=== PATIENT | female | born 1980 | race Caucasian/White ===

== ENCOUNTER 2018-03-18 23:44 | Emergency (ER) | payer BC ==
[2018-03-18 23:54] VITALS: BP 136/90; PULSE 82; TEMP 97.8; BMI 36.6
[2018-03-19] MEDS ORDERED: ONDANSETRON 4 MG/2 ML VIAL ONE
[2018-03-19] MEDS ORDERED: KETOROLAC TROMETHAMINE 30 MG/1 ML VIAL ONE (00:01)
[2018-03-19] MEDS ORDERED: SODIUM CHLORIDE 1,000 ML IV STA ×2 (00:02→01:11)
[2018-03-19] MEDS ORDERED: KETOROLAC TROMETHAMINE 30 MG/1 ML VIAL IVPUSH ONE (00:02)
[2018-03-19] MEDS ORDERED: ONDANSETRON 4 MG/2 ML VIAL IVPUSH ONE (00:02)
--- NOTE | 2018-03-19 00:02 | PDOC ---
History of Present Illness - General Chief Complaint: Pain, Acute Stated Complaint: KIDNEY STONE Time Seen by Provider: 03/18/18 23:47 - History of Present Illness Initial Comments: 03/19/18 00:13 This 37-year-old woman with a 15 year history of bilateral kidney stones (most recently 8 years ago) presents with 1 day history of left CVA pain accompanied by nausea with 1 episode of vomiting. Patient states that to previous kidney stones ( 1 on right/1 on left) required shockwave lithotripsy. She has not had any hematuria/dysuria/urgency. No fever or chills. She states that this pain is very similar to previous episodes of kidney stones. Patient has currently menstruating and states that she is not . Past History - Past Medical History Allergies/Adverse Reactions: Allergies Allergy/AdvReac Type Severity Reaction Status Date / Time No Known Allergies Allergy Verified 03/18/18 23:45 Home Medications: Ambulatory Orders Ondansetron [Zofran Odt -] 4 mg SL TID PRN #12 od.tablet 03/19/18 Oxycodone HCl/Acetaminophen [Percocet 5-325 mg Tablet] 1 tab PO Q6H PRN #16 tablet MDD 4 tabs 03/19/18 COPD: No Kidney Stones: Yes - Suicide/Smoking/Psychosocial Hx Smoking History: Current some day smoker Have you smoked in the past 12 months: Yes Information on smoking cessation initiated: Yes Hx Alcohol Use: Yes (OCCAS) Drug/Substance Use Hx: No Review of Systems - Review of Systems Able to Perform ROS?: Yes Comments:: 12 point review of systems is negative except for what is noted in the history of present illness *Physical Exam - Vital Signs Last Vital Signs Temp Pulse Resp BP Pulse Ox 97.8 F 82 16 136/90 100 03/18/18 23:47 03/18/18 23:47 03/18/18 23:47 03/18/18 23:47 03/18/18 23:47 - Physical Exam Comments: GENERAL: Adult female, alert and oriented 3, in moderate distress secondary to left CVA/left flank pain HEAD: Normal with no signs of trauma. EYES: PERRLA, EOMI, sclera anicteric, conjunctiva clear. ENT: Ears normal, nares patent, oropharynx clear without exudates. Dry mucous membranes. NECK: Normal range of motion, supple without lymphadenopathy, JVD, or masses. LUNGS: Breath sounds equal, clear to auscultation bilaterally. No wheezes, and no crackles. HEART:Regular rate and rhythm, normal S1 and S2 without murmur, rub or gallop. ABDOMEN:.normal bowel sounds No guarding,tenderness or rebound.No masses No distention. EXTREMITIES: Normal range of motion, no edema. No clubbing or cyanosis. No erythema, or tenderness. NEUROLOGICAL: Cranial nerves II through XII grossly intact. Normal speech. No focal neurological deficits. MUSCULOSKELETAL: Back non-tender to palpation, mild left CVA tenderness SKIN: Warm, Dry, normal turgor, no rashes or lesions noted. Moderate Sedation - Procedure Monitoring Vital Signs: Procedure Monitoring Vital Signs Temperature 97.8 F 03/18/18 23:47 Pulse Rate 82 03/18/18 23:47 Respiratory Rate 16 03/18/18 23:47 Blood Pressure 136/90 03/18/18 23:47 O2 Sat by Pulse Oximetry (%) 100 03/18/18 23:47 Progress Note - Progress Note Progress Note: Patient received an IV for hydration and analgesia: 1 L normal saline started and patient received 30 mg Toradol IV. She also received 4 mg of Zofran IV for her nausea/vomiting. Patient is currently menstruating and states that she is not . Renal stone protocol spiral CT performed: 8 mm stone seen at left UPJ with moderate hydronephrosis Patient had marked relief in her symptoms after Toradol IV and Zofran IV. Since she had not yet urinated, another liter of normal saline IV was administered. Mild amount of recurrent CVA/flank pain occurred patient was given one tablet Percocet 5/325 by mouth. The patient will be discharged with prescriptions for Percocet 5/325 to be used up to 4 times a day as needed for severe pain (#12); also, Zofran ODT 4 mg 3 times a day as needed for nausea (#10). Prescriptions were transmitted to patient's pharmacy. Patient had significant relief in her recurrent pain and was discharged with instructions to continue drinking plenty of water. She was given referral to urologist (); she should call office tomorrow to arrange follow-up within the next 5-7 days. She return to the emergency room if she has severe pain/vomiting/fever *DC/Admit/Observation/Transfer Diagnosis at time of Disposition: Renal colic on left side - Discharge Dispostion Disposition: HOME Condition at time of disposition: Stable - Prescriptions Prescriptions: Ondansetron [Zofran Odt -] 4 mg SL TID PRN #12 od.tablet PRN Reason: Nausea Oxycodone HCl/Acetaminophen [Percocet 5-325 mg Tablet] 1 tab PO Q6H PRN #16 tablet MDD 4 tabs PRN Reason: Severe Pain - Referrals Referrals: Mani Keller MD [Staff Physician] - 7 days - Patient Instructions Printed Discharge Instructions: Kidney Stones -- Adult Additional Instructions: drink plenty of fluids Strain urine and save any stones for analysis Tylenol/Motrin/Aleve as needed for [id number] pain Percocet 5/325 up to 4 times a day as needed for severe pain Return to ER if you have severe, persistent pain or vomiting/fever Call urologist () office tomorrow to arrange follow-up within 1 week - Post Discharge Activity
== END 2018-03-19 01:58 | disposition home or self-care (01) ==
LOC: FER 23:44
PROC: 3E0333Z Introduction of Anti-inflammatory into Peripheral Vein, Percutaneous Approach (ICD-10-PCS; principal; 2018-03-18)
PROC: 3E033GC Introduction of Other Therapeutic Substance into Peripheral Vein, Percutaneous Approach (ICD-10-PCS; 2018-03-18)
PROC: 3E0337Z Introduction of Electrolytic and Water Balance Substance into Peripheral Vein, Percutaneous Approach (ICD-10-PCS; 2018-03-18)
DX: N20.0 Calculus of kidney (principal); F17.210 Nicotine dependence, cigarettes, uncomplicated
CPT/HCPCS: 74176; 99281-25; J7030